=== PATIENT | female | born 1985 | race American Indian/Alaskan Native ===

== ENCOUNTER 2020-02-23 17:58 | Emergency (ER) | payer SELFPAY ==
[2020-02-23 18:18] VITALS: BP 120/73
--- NOTE | 2020-02-23 19:11 | XRay Report ---
CHEST 2 VIEWS INDICATION / CLINICAL INFORMATION: Chest Pain. COMPARISON: None available. FINDINGS: SUPPORT DEVICES: None. HEART / MEDIASTINUM: No significant abnormality. LUNGS / PLEURA: No significant pulmonary or pleural abnormality. No pneumothorax. ADDITIONAL FINDINGS: No significant additional findings. IMPRESSION: 1. No acute findings. Signer Name: Mian Marie MD Signed: 02/23/2020 7:06 PM Workstation Name: [id number]
== END 2020-02-23 19:40 | disposition left against medical advice (07) ==
LOC: ED 17:58
DX: R07.89 Other chest pain (principal); Z53.21 Procedure and treatment not carried out due to patient leaving prior to being seen by health care provider
CPT/HCPCS: 71046; 93005